=== PATIENT | female | born 1980 | race African-American/Black ===

== ENCOUNTER 2017-08-29 15:18 | Emergency (ER) | payer OTHER ==
[~2017-08-29] VITALS: Ht 152.4 cm; Wt 94.8 kg
[~2017-08-29 15:18] MED LIST: ABILIFY20 MG PO; BUSPAR30 MG PO; GLUCOPHAGE500 MG PO; INDOCIN25 MG PO; NORCO 7.5/321 TABLET PO; PAXIL30 MG PO; TENORMIN50 MG PO; bp pill
[2017-08-29 18:07] VITALS: BP 90/60
== END 2017-08-29 18:09 | disposition home or self-care (01) ==
LOC: EME 15:18
DX: F10.129 Alcohol abuse with intoxication, unspecified (principal); E11.9 Type 2 diabetes mellitus without complications; Z79.84 Long term (current) use of oral hypoglycemic drugs; I10 Essential (primary) hypertension; F32.9 Major depressive disorder, single episode, unspecified; F17.200 Nicotine dependence, unspecified, uncomplicated; Z87.440 Personal history of urinary (tract) infections; Z88.2 Allergy status to sulfonamides
CPT/HCPCS: 80053; 81003; 83605; 83690; 83735; 84703; 85025; 85610; 85730; 99281; 99285; G0480; J2310

== ENCOUNTER 2017-09-06 20:25 | Emergency (ER) | payer OTHER ==
[~2017-09-06] VITALS: Ht 160 cm; Wt 94.7 kg
[2017-09-06] MEDS ORDERED: NORCO 5/3251 TABLET PO (23:10)
[2017-09-06] MEDS ORDERED: PEN-VEE K,VEET500 MG PO (23:10)
[2017-09-06] MEDS ORDERED: MOTRIN600 MG PO (23:10)
== END 2017-09-06 23:43 | disposition home or self-care (01) ==
LOC: EME 20:25 → EXP 20:25
DX: K08.89 Other specified disorders of teeth and supporting structures (principal); K02.9 Dental caries, unspecified; R07.0 Pain in throat; F17.200 Nicotine dependence, unspecified, uncomplicated
CPT/HCPCS: 99281; 99284

== ENCOUNTER 2018-01-22 06:18 | Emergency (ER) | payer OTHER ==
[~2018-01-22] VITALS: Ht 160 cm; Wt 92.4 kg
[~2018-01-22 06:18] MED LIST changes: +MOTRIN600 MG PO; +NORCO 5/3251 TABLET PO; +PEN-VEE K,VEET500 MG PO
[2018-01-22 07:22] LABS: HEMOGLOBIN 13.5 G/DL (11.9-15.5); MCH 32.5 PG (29.0-34.0); MCHC 36.5 G/DL (30.0-36.0); MCV 88.9 FL (83-99); PLATELET COUNT 248 K/uL (156-360); RBC DIS.WIDTH-SD 41.9 % (39-53); RED BLOOD COUNT 4.16 M/uL (3.80-5.20); WHITE BLOOD COUNT 10.5 K/uL (4.1-10.2)
[2018-01-22 07:53] LABS: TROP-I INTERPRETATION NEGATIVE; TROPONIN-I < 0.01 ng/mL (0.0-0.30)
[2018-01-22 07:58] LABS: CHLORIDE 106 MEQ/L (99-109); CREATININE 0.8 MG/DL (0.6-1.3); GFR ESTIMATE (CALCULATED) > 59 mL/min/; GLUCOSE 156 mg/dL (70-99); POTASSIUM 3.9 MEQ/L (3.7-5.4); SERUM ETHYL ALCOHOL 246 mg/dL; SODIUM 139 MEQ/L (136-147); UREA NITROGEN (BUN) 13 mg/dL (9-23)
[2018-01-22 09:40] LABS: TROP-I INTERPRETATION NEGATIVE; TROPONIN-I < 0.01 ng/mL (0.0-0.30)
[2018-01-22] MEDS ORDERED: ZITHROMAX Z-PA250 MG PO (10:49)
[2018-01-22 11:09] VITALS: BP 122/87
== END 2018-01-22 11:12 | disposition home or self-care (01) ==
LOC: EME 06:18
PROVIDERS: Emergency Medicine
DX: R07.89 Other chest pain (principal); F10.129 Alcohol abuse with intoxication, unspecified; Y90.8 Blood alcohol level of 240 mg/100 ml or more; J20.9 Acute bronchitis, unspecified; I10 Essential (primary) hypertension; E11.9 Type 2 diabetes mellitus without complications; F31.9 Bipolar disorder, unspecified; F32.9 Major depressive disorder, single episode, unspecified; F17.200 Nicotine dependence, unspecified, uncomplicated; Z87.440 Personal history of urinary (tract) infections; Z88.2 Allergy status to sulfonamides
CPT/HCPCS: 71046; 80048; 84484; 85027; 93005; 99281; 99285; G0480

== ENCOUNTER 2018-03-27 05:40 | Emergency (ER) | payer OTHER ==
[~2018-03-27] VITALS: Ht 162.6 cm; Wt 93.7 kg
[~2018-03-27 05:40] MED LIST changes: +ZITHROMAX Z-PA250 MG PO
[2018-03-27 06:58] LABS: HEMATOCRIT 35.8 % (36.0-46.0); HEMOGLOBIN 12.8 G/DL (11.9-15.5); MCHC 35.8 G/DL (30.0-36.0); MCV 92.3 FL (83-99); PLATELET COUNT 270 K/uL (156-360); RBC DIS.WIDTH-CV 13.2 % (11.8-14.6); RBC DIS.WIDTH-SD 44.3 % (39-53); RED BLOOD COUNT 3.88 M/uL (3.80-5.20); WHITE BLOOD COUNT 12.7 K/uL (4.1-10.2)
[2018-03-27 07:32] LABS: CHLORIDE 108 MEQ/L (99-109); CREATININE 1.3 MG/DL (0.6-1.3); GFR ESTIMATE (CALCULATED) 58 mL/min/; GLUCOSE 192 mg/dL (70-99); POTASSIUM 3.9 MEQ/L (3.7-5.4); SODIUM 136 MEQ/L (136-147); UREA NITROGEN (BUN) 26 mg/dL (9-23)
[2018-03-27] MEDS ORDERED: NAPROSYN500 MG PO (07:34)
[2018-03-27] MEDS ORDERED: FLEXERIL10 MG PO (07:34)
[2018-03-27 07:35] LABS: QUANTITATIVE HCG < 4.0 MIU/ML
[2018-03-27 08:09] VITALS: BP 103/73
== END 2018-03-27 08:14 | disposition home or self-care (01) ==
LOC: EME 05:40
PROVIDERS: Physician Assistant
DX: M62.838 Other muscle spasm (principal); M54.2 Cervicalgia; V43.12XA Car passenger injured in collision with other type car in nontraffic accident, initial encounter; Y92.414 Local residential or business street as the place of occurrence of the external cause; J45.909 Unspecified asthma, uncomplicated; I10 Essential (primary) hypertension; E11.9 Type 2 diabetes mellitus without complications; F17.200 Nicotine dependence, unspecified, uncomplicated; F32.9 Major depressive disorder, single episode, unspecified; Z88.2 Allergy status to sulfonamides
CPT/HCPCS: 72125; 80048; 84702; 85027; 99281; 99284